=== PATIENT | female | born 1965 | race Caucasian/White ===

== ENCOUNTER 2019-09-01 19:37 | Emergency (ER) | payer OTHER ==
[2019-09-01] MEDS ORDERED: Zofran 4 MG/2 ML VIAL IV ONE (20:03)
[2019-09-01] MEDS ORDERED: SUBLIMAZE 100 MCG/2 ML IV ONE (20:03)
[2019-09-01] MEDS ORDERED: Sodium Chloride 0.9% 1000 ML 1,000 ML IV STA (20:03)
--- NOTE | 2019-09-01 20:03 | ERPHSYRPT ---
- History of Present Illness Time Seen by Provider: 09/01/19 19:52 Source: patient Exam Limitations: no limitations Physician History: Pt states yesterday midnight she started with a frontal headache, nausea, non- productive cough, scratchy throat, fever up to 101 degrees and suprapubic abdominal pain. Pt states she has had no abdominal pain today but has had diarrhea. Pt denies chest pain, shortness of air, rash. Allergies/Adverse Reactions: morphine Adverse Reaction (Mild, Verified 09/01/19 20:11) Vomiting tetracycline Adverse Reaction (Mild, Verified 09/01/19 20:11) Vomiting Travel Risk - Coronavirus Screening Are you exhibiting any of the following symptoms?: Yes Symptoms: Fever, Cough: New Onset Close contact with a COVID-19 positive Pt in past 14-21 Days: Yes - Review of Systems Constitutional: Fever Ears, Nose, & Throat: Other (scratchy throat), No Ear Pain Respiratory: Cough, No Dyspnea Cardiac: No Chest Pain Abdominal/Gastrointestinal: Abdominal Pain, Nausea, Diarrhea, No Vomiting Genitourinary Symptoms: No Dysuria, No Frequency Skin: No Rash Neurological: Headache All Other Systems: Reviewed and Negative - Nursing Vital Signs Nursing Vital Signs: Initial Vital Signs Temperature 99.2 F 09/01/19 19:56 Pulse Rate 83 09/01/19 19:56 Respiratory Rate 18 09/01/19 19:56 Blood Pressure 174/109 09/01/19 19:56 O2 Sat by Pulse Oximetry 97 09/01/19 19:56 Pain Scale Pain Intensity 0 - Physical Exam General Appearance: alert Eye Exam: PERRL/EOMI ENT Exam: TMs normal, pharynx normal Neck Exam: normal inspection Respiratory Exam: lungs clear Cardiovascular/Chest Exam: normal heart sounds Gastrointestinal/Abdominal Exam: soft, normal bowel sounds Extremity Exam: normal range of motion, no pedal edema Neurologic Exam: alert, cooperative, sensation nml, No motor deficits Skin Exam: warm, decubitus SpO2 Interpretation: normal SpO2: 97 O2 Delivery: Room Air - Course Nursing assessment & vital signs reviewed: Yes - Radiology Exams Chest X-ray Interpretation: Teleradiologist Report (old granulomatous disease.) - CT Exams Head CT Interpretation: Tele-radiologist Report (No acute intracranial abnormality.) Ordered Tests: Active Orders 24 hr Category Date Time Status IV Insertion STAT Care 09/01/19 20:03 Active CHEST 2 VIEWS (PA AND LAT) Stat Exams 09/01/19 20:04 Taken HEAD WITHOUT CONTRAST [CT] Stat Exams 09/01/19 20:06 Taken AMYLASE Stat Lab 09/01/19 20:00 Completed BLOOD CULTURE Stat Lab 09/01/19 20:41 Received CBC W DIFF Stat Lab 09/01/19 20:00 Completed CMP Stat Lab 09/01/19 20:00 Completed CULTURE,URINE Stat Lab 09/01/19 22:01 Received Erythrocyte Sedimentation Rate Stat Lab 09/01/19 20:00 Completed LIPASE Stat Lab 09/01/19 20:00 Completed [place] Screen Stat Lab 09/01/19 20:00 Completed UA W/RFX UR CULTURE Stat Lab 09/01/19 22:01 Completed Medication Summary Discontinued Medications Generic Name Dose Route Start Last Admin Trade Name Freq PRN Reason Stop Dose Admin Fentanyl Citrate 50 mcg 09/01/19 20:03 09/01/19 20:18 Sublimaze 100 Mcg/2 Ml IV 09/01/19 20:04 50 mcg STAT ONE Administration Fentanyl Citrate Confirm 09/01/19 20:12 Sublimaze 100 Mcg/2 Ml Administered 09/01/19 20:13 Dose 100 mcg .ROUTE .STK-MED ONE Sodium Chloride 1,000 mls @ 999 mls/hr 09/01/19 20:03 09/01/19 21:51 Sodium Chloride 0.9% 1000 Ml IV 09/01/19 21:03 Infused .Q1H1M STA Infusion Sodium Chloride Confirm 09/01/19 20:12 Sodium Chloride 0.9% 1000 Ml Administered 09/01/19 20:13 Dose 1,000 mls @ ud .ROUTE .STK-MED ONE Ketorolac Tromethamine 30 mg 09/01/19 21:27 09/01/19 21:33 Toradol 30 Mg Injection IV 09/01/19 21:28 30 mg STAT ONE Administration Ketorolac Tromethamine Confirm 09/01/19 21:31 Toradol 30 Mg Injection Administered 09/01/19 21:32 Dose 30 mg .ROUTE .STK-MED ONE Ondansetron HCl 4 mg 09/01/19 20:03 09/01/19 20:17 Zofran 4 Mg/2 Ml Vial IV 09/01/19 20:04 4 mg STAT ONE Administration Ondansetron HCl Confirm 09/01/19 20:12 Zofran 4 Mg/2 Ml Vial Administered 09/01/19 20:13 Dose 4 mg .ROUTE .STK-MED ONE Promethazine HCl 25 mg 09/01/19 21:28 09/01/19 21:32 Phenergan 25 Mg Inj IM 09/01/19 21:29 25 mg STAT ONE Administration Promethazine HCl Confirm 09/01/19 21:31 Phenergan 25 Mg Inj Administered 09/01/19 21:32 Dose 25 mg .ROUTE .STK-MED ONE Lab/Rad Data: Laboratory Result Diagrams 09/01/19 20:00 09/01/19 20:00 Laboratory Results 09/01/19 09/01/19 09/01/19 Range/Units 22:01 20:41 20:19 WBC (4.0-10.5) K/mm3 RBC (4.1-5.4) M/mm3 Hgb (12.0-16.0) gm/dl Hct (35-47) % MCV (78-100) fl MCH (26-32) pg MCHC (32-36) g/dl RDW (11.5-14.0) % Plt Count (150-450) K/mm3 MPV (7.5-11.0) fl Gran % (36.0-66.0) % Eos # (Auto) (0-0.5) Absolute Lymphs (auto) (1.0-4.6) Absolute Monos (auto) (0.0-1.3) Lymphocytes % (24.0-44.0) % Monocytes % (0.0-12.0) % Eosinophils % (0.00-5.0) % Basophils % (0.0-0.4) % Absolute Granulocytes (1.4-6.9) Basophils # (0-0.4) ESR (0-20) mm/hr Sodium (137-145) mmol/L Potassium (3.5-5.1) mmol/L Chloride (98-107) mmol/L Carbon Dioxide (22-30) mmol/L Anion Gap (5-15) MEQ/L BUN (7-17) mg/dL Creatinine (0.52-1.04) mg/dL Estimated GFR ML/MIN Glucose (74-106) mg/dL Calcium (8.4-10.2) mg/dL Total Bilirubin (0.2-1.3) mg/dL AST (14-36) U/L ALT (0-35) U/L Alkaline Phosphatase (38-126) U/L Serum Total Protein (6.3-8.2) g/dL Albumin (3.5-5.0) g/dL Amylase (30-110) U/L Lipase (23-300) U/L Urine Color YELLOW (YELLOW) Urine Appearance SLIGHTLY CLOUDY (CLEAR) Urine pH 5.0 (5-6) Ur Specific [place] 1.018 (1.005-1.025) Urine Protein NEGATIVE (Negative) Urine Ketones NEGATIVE (NEGATIVE) Urine Blood SMALL (0-5) Teo/ul Urine Nitrite NEGATIVE (NEGATIVE) Urine Bilirubin NEGATIVE (NEGATIVE) Urine Urobilinogen NEGATIVE (0-1) mg/dL Ur Leukocyte Esterase SMALL (NEGATIVE) Urine WBC (Auto) 3-5 (0-5) /HPF Urine RBC (Auto) 3-5 (0-2) /HPF U Epithel Cells (Auto) RARE (FEW) /HPF Urine Bacteria (Auto) NONE SEEN (NEGATIVE) /HPF Urine Mucus (Auto) SLIGHT (NEGATIVE) /HPF Urine Culture Reflexed YES (NO) Urine Glucose NEGATIVE (NEGATIVE) mg/dL Monoscreen (Negative) Influenza Type A Ag NEGATIVE (NEGATIVE) Influenza Type B Ag NEGATIVE (NEGATIVE) RSV (PCR) NEGATIVE (Negative) SARS-CoV-2 (PCR) NEGATIVE (NEGATIVE) Group A Strep Antibody NOT DETECTED (NEGATIVE) 09/01/19 09/01/19 09/01/19 Range/Units 20:00 20:00 20:00 WBC (4.0-10.5) K/mm3 RBC (4.1-5.4) M/mm3 Hgb (12.0-16.0) gm/dl Hct (35-47) % MCV (78-100) fl MCH (26-32) pg MCHC (32-36) g/dl RDW (11.5-14.0) % Plt Count (150-450) K/mm3 MPV (7.5-11.0) fl Gran % (36.0-66.0) % Eos # (Auto) (0-0.5) Absolute Lymphs (auto) (1.0-4.6) Absolute Monos (auto) (0.0-1.3) Lymphocytes % (24.0-44.0) % Monocytes % (0.0-12.0) % Eosinophils % (0.00-5.0) % Basophils % (0.0-0.4) % Absolute Granulocytes (1.4-6.9) Basophils # (0-0.4) ESR 31 H (0-20) mm/hr Sodium 142 (137-145) mmol/L Potassium 3.6 (3.5-5.1) mmol/L Chloride 105 (98-107) mmol/L Carbon Dioxide 30 (22-30) mmol/L Anion Gap 10.5 (5-15) MEQ/L BUN 10 (7-17) mg/dL Creatinine 0.72 (0.52-1.04) mg/dL Estimated GFR > 60.0 ML/MIN Glucose 105 (74-106) mg/dL Calcium 9.9 (8.4-10.2) mg/dL Total Bilirubin 0.50 (0.2-1.3) mg/dL AST 27 (14-36) U/L ALT 19 (0-35) U/L Alkaline Phosphatase 96 (38-126) U/L Serum Total Protein 8.3 H (6.3-8.2) g/dL Albumin 4.4 (3.5-5.0) g/dL Amylase 74 (30-110) U/L Lipase 102 (23-300) U/L Urine Color (YELLOW) Urine Appearance (CLEAR) Urine pH (5-6) Ur Specific [place] (1.005-1.025) Urine Protein (Negative) Urine Ketones (NEGATIVE) Urine Blood (0-5) Teo/ul Urine Nitrite (NEGATIVE) Urine Bilirubin (NEGATIVE) Urine Urobilinogen (0-1) mg/dL Ur Leukocyte Esterase (NEGATIVE) Urine WBC (Auto) (0-5) /HPF Urine RBC (Auto) (0-2) /HPF U Epithel Cells (Auto) (FEW) /HPF Urine Bacteria (Auto) (NEGATIVE) /HPF Urine Mucus (Auto) (NEGATIVE) /HPF Urine Culture Reflexed (NO) Urine Glucose (NEGATIVE) mg/dL Monoscreen NEGATIVE (Negative) Influenza Type A Ag (NEGATIVE) Influenza Type B Ag (NEGATIVE) RSV (PCR) (Negative) SARS-CoV-2 (PCR) (NEGATIVE) Group A Strep Antibody (NEGATIVE) 09/01/19 Range/Units 20:00 WBC 6.3 (4.0-10.5) K/mm3 RBC 4.54 (4.1-5.4) M/mm3 Hgb 13.6 (12.0-16.0) gm/dl Hct 42.4 (35-47) % MCV 93.4 (78-100) fl MCH 30.0 (26-32) pg MCHC 32.1 (32-36) g/dl RDW 13.0 (11.5-14.0) % Plt Count 358 (150-450) K/mm3 MPV 9.8 (7.5-11.0) fl Gran % 55.2 (36.0-66.0) % Eos # (Auto) 0.41 (0-0.5) Absolute Lymphs (auto) 1.80 (1.0-4.6) Absolute Monos (auto) 0.56 (0.0-1.3) Lymphocytes % 28.4 (24.0-44.0) % Monocytes % 8.8 (0.0-12.0) % Eosinophils % 6.5 H (0.00-5.0) % Basophils % 1.1 (0.0-0.4) % Absolute Granulocytes 3.50 (1.4-6.9) Basophils # 0.07 (0-0.4) ESR (0-20) mm/hr Sodium (137-145) mmol/L Potassium (3.5-5.1) mmol/L Chloride (98-107) mmol/L Carbon Dioxide (22-30) mmol/L Anion Gap (5-15) MEQ/L BUN (7-17) mg/dL Creatinine (0.52-1.04) mg/dL Estimated GFR ML/MIN Glucose (74-106) mg/dL Calcium (8.4-10.2) mg/dL Total Bilirubin (0.2-1.3) mg/dL AST (14-36) U/L ALT (0-35) U/L Alkaline Phosphatase (38-126) U/L Serum Total Protein (6.3-8.2) g/dL Albumin (3.5-5.0) g/dL Amylase (30-110) U/L Lipase (23-300) U/L Urine Color (YELLOW) Urine Appearance (CLEAR) Urine pH (5-6) Ur Specific [place] (1.005-1.025) Urine Protein (Negative) Urine Ketones (NEGATIVE) Urine Blood (0-5) Teo/ul Urine Nitrite (NEGATIVE) Urine Bilirubin (NEGATIVE) Urine Urobilinogen (0-1) mg/dL Ur Leukocyte Esterase (NEGATIVE) Urine WBC (Auto) (0-5) /HPF Urine RBC (Auto) (0-2) /HPF U Epithel Cells (Auto) (FEW) /HPF Urine Bacteria (Auto) (NEGATIVE) /HPF Urine Mucus (Auto) (NEGATIVE) /HPF Urine Culture Reflexed (NO) Urine Glucose (NEGATIVE) mg/dL Monoscreen (Negative) Influenza Type A Ag (NEGATIVE) Influenza Type B Ag (NEGATIVE) RSV (PCR) (Negative) SARS-CoV-2 (PCR) (NEGATIVE) Group A Strep Antibody (NEGATIVE) - Progress Progress: unchanged Counseled pt/family regarding: lab results, rad results - Departure Departure Disposition: Home Clinical Impression: Headache, Fever, Nausea, Diarrhea Condition: Stable Critical Care Time: No Referrals: DOCTOR,NO FAMILY [Primary Care Provider] - Instructions: Fever, Adult (DC) Additional Instructions: Follow up with private doctor tomorrow. Drink plenty of fluids. Forms: Work/School Release Form Prescriptions: Ondansetron ODT 4 MG [Zofran Odt 4 mg] 4 mg PO Q6H PRN PRN #20 tab.rapdis PRN Reason: Nausea/Vomiting Naproxen [Naprosyn] 500 mg PO [id number] PRN #20 tablet PRN Reason: Pain
[2019-09-01] MEDS ORDERED: Sodium Chloride 0.9% 1000 ML 1,000 ML ONE (20:12)
[2019-09-01] MEDS ORDERED: SUBLIMAZE 100 MCG/2 ML ONE (20:12)
[2019-09-01] MEDS ORDERED: Zofran 4 MG/2 ML VIAL ONE (20:12)
[2019-09-01 20:15] LABS: BASOPHIL % 1.1 % (0.0-0.4); Basophil (Absolute #) 0.07 (0-0.4); Eosinophil % 6.5 % (0.00-5.0); Eosinophil (Absolute #) 0.41 (0-0.5); Hematocrit 42.4 % (35-47); Hemoglobin 13.6 gm/dl (12.0-16.0); Lymphocytes % 28.4 % (24.0-44.0); Mean Cell Volume 93.4 fl (78-100); Mean Corpuscular Hgb Concent. 32.1 g/dl (32-36); Mean Platelet Volume 9.8 fl (7.5-11.0); Monocyte (Absolute #) 0.56 (0.0-1.3); Monocytes % 8.8 % (0.0-12.0); Neutrophil % 55.2 % (36.0-66.0); Platelet Count 358 K/mm3 (150-450); Red Blood Count 4.54 M/mm3 (4.1-5.4); White Blood Count 6.3 K/mm3 (4.0-10.5)
[2019-09-01 20:22] LABS: ALBUMIN 4.4 g/dL (3.5-5.0); ALKALINE PHOSPHATASE 96 U/L (38-126); AMYLASE 74 U/L (30-110); ANION GAP 10.5 MEQ/L (5-15); BLOOD UREA NITROGEN 10 mg/dL (7-17); CHLORIDE 105 mmol/L (98-107); Calcium 9.9 mg/dL (8.4-10.2); Carbon Dioxide 30 mmol/L (22-30); Creatinine 1 0.72 mg/dL (0.52-1.04); Glucose 105 mg/dL (74-106); LIPASE 102 U/L (23-300); Potassium 3.6 mmol/L (3.5-5.1); SGOT/AST 27 U/L (14-36); SGPT/ALT 19 U/L (0-35); SODIUM 142 mmol/L (137-145); Total Protein 8.3 g/dL (6.3-8.2)
[2019-09-01 21:16] LABS: INFLUENZA A NEGATIVE (NEGATIVE); INFLUENZA B NEGATIVE (NEGATIVE); RESPIRATORY SYNCTIAL VIRUS NEGATIVE (Negative)
[2019-09-01] MEDS ORDERED: TORAdol 30 mg Injection IV ONE (21:27)
[2019-09-01] MEDS ORDERED: Phenergan 25 MG INJ IM ONE (21:28)
[2019-09-01] MEDS ORDERED: Phenergan 25 MG INJ ONE (21:31)
[2019-09-01] MEDS ORDERED: TORAdol 30 mg Injection ONE (21:31)
[2019-09-01 22:12] LABS: Appearance SLIGHTLY CLOUDY (CLEAR); Bilirubin NEGATIVE (NEGATIVE); Blood SMALL Ery/ul (0-5); Epithelial Cells RARE /HPF (FEW); Glucose NEGATIVE (NEGATIVE); Ketones NEGATIVE (NEGATIVE); Leukocyte Esterase SMALL (NEGATIVE); Mucus SLIGHT /HPF (NEGATIVE); Nitrite NEGATIVE (NEGATIVE); Protein,Urine Dip NEGATIVE (Negative); Specific Gravity 1.018 (1.005-1.025); Urobilinogen NEGATIVE mg/dL (0-1)
[2019-09-01 22:13] LABS: Bacteria NONE SEEN /HPF (NEGATIVE)
[2019-09-01 23:37] VITALS: BP 144/90; PULSE 68; O2SAT 94
--- NOTE | 2019-09-02 07:42 | XRAY ---
Indication: Headache. Multiple contiguous axial images obtained through the head without contrast. Comparison: None Normal appearing brain parenchyma, ventricles, and bony calvarium. Visualized paranasal sinuses and mastoid air cells are clear. Impression: Normal CT head without contrast exam. Comment: Preliminary interpretation was made by [facility]. No critical discrepancy.
--- NOTE | 2019-09-02 07:42 | XRAY ---
Indication: Fever and cough. Comparison: None PA/lateral chest demonstrates normal heart and lungs with incidental tiny calcified granulomas. Bony thorax intact with minimal dextroscoliosis. Comment: Preliminary interpretation was made by [facility]. No discrepancy.
== END 2019-09-01 23:37 | disposition home or self-care (01) ==
LOC: ED 19:37
DX: R51 Headache (principal); R50.9 Fever, unspecified; R19.7 Diarrhea, unspecified; R11.0 Nausea
CPT/HCPCS: 36000; 36415; 70450; 71046; 80053; 81001; 82150; 83690; 85025; 85652; 86308; 87040; 87086; 87631; 87651; 96360; 96372; 96374; 96375; 99284; U0003; 87077; 87186; J1885; J2405; J2550; J3010

== ENCOUNTER 2021-05-26 08:37 | Day surgery (SDC) | payer BC ==
[2021-05-26] MEDS ORDERED: Lactated Ringers 1,000 ML IV ONE (08:47)
[2021-05-26] MEDS ORDERED: Lactated Ringers 1,000 ML IV SCH (09:00)
[2021-05-26] MEDS ORDERED: CEFAZOLIN 2 GM-D5W BAG** 2 GM/50 ML ML IV SCH (09:00)
[2021-05-26] MEDS ORDERED: CEFAZOLIN 2 GM-D5W BAG** 2 GM/50 ML ML IV ONE (09:42)
[2021-05-26 09:46] LABS: Absolute Neutrophil Ct (ANC) 3.52 (1.4-6.9); Basophil (Absolute #) 0.07 (0-0.4); Eosinophil % 6.7 % (0.00-5.0); Hematocrit 40.6 % (35-47); Hemoglobin 13.5 gm/dl (12.0-16.0); Lymphocyte (Absolute #) 1.46 (1.0-4.6); Lymphocytes % 24.6 % (24.0-44.0); Mean Cell Volume 92.3 fl (78-100); Mean Corpuscular Hemoglobin 30.7 pg (26-32); Mean Corpuscular Hgb Concent. 33.3 g/dl (32-36); Mean Platelet Volume 9.8 fl (7.5-11.0); Monocyte (Absolute #) 0.49 (0.0-1.3); Monocytes % 8.2 % (0.0-12.0); Neutrophil % 59.3 % (36.0-66.0); Platelet Count 261 K/mm3 (150-450); Red Cell Distribution Width 12.7 % (11.5-14.0); White Blood Count 5.9 K/mm3 (4.0-10.5)
[2021-05-26 10:05] LABS: ALBUMIN 4.3 g/dL (3.5-5.0); ALKALINE PHOSPHATASE 92 U/L (38-126); ANION GAP 12.2 MEQ/L (5-15); BLOOD UREA NITROGEN 11 mg/dL (7-17); CHLORIDE 104 mmol/L (98-107); Calcium 9.2 mg/dL (8.4-10.2); Carbon Dioxide 28 mmol/L (22-30); Creatinine 1 0.56 mg/dL (0.52-1.04); EST GLOMERULAR FILTRATION RATE > 60.0 ML/MIN; Glucose 92 mg/dL (74-106); Potassium 3.9 mmol/L (3.5-5.1); SGOT/AST 30 U/L (14-36); SGPT/ALT 20 U/L (0-35); SODIUM 141 mmol/L (137-145); Total Protein 7.5 g/dL (6.3-8.2)
[2021-05-26] MEDS ORDERED: Decadron 4 MG INJ ONE (11:13)
[2021-05-26] MEDS ORDERED: Zofran 4 MG/2 ML VIAL ONE ×2 (11:13→12:37)
[2021-05-26] MEDS ORDERED: Xylocaine-Mpf 2% 5 Ml Vial ONE (11:13)
[2021-05-26] MEDS ORDERED: SUBLIMAZE 100 MCG/2 ML ONE (11:16)
[2021-05-26] MEDS ORDERED: Zemuron 100 MG/10 ML ONE (11:39)
[2021-05-26] MEDS ORDERED: BRIDION 200MG/2ML IV ONE (11:39)
[2021-05-26] MEDS ORDERED: TORAdol 30 mg Injection ONE ×2 (11:39→12:41)
[2021-05-26] MEDS ORDERED: XYLOCAINE 1%/Epi 1:100000 MDV 20 ML ONE (11:50)
[2021-05-26] MEDS ORDERED: Ephedrine Sulfate 50 MG/ML ONE (12:02)
[2021-05-26 14:28] VITALS: O2SAT 95
[2021-05-26 14:29] LABS: Appearance CLEAR (CLEAR); Bilirubin NEGATIVE (NEGATIVE); Dipstick done @ ? MAIN LAB; Glucose NEGATIVE (NEGATIVE); Ketones NEGATIVE (NEGATIVE); Nitrite NEGATIVE (NEGATIVE); Protein,Urine Dip NEGATIVE (Negative); RBC NEGATIVE Ery/ul (0-5); Specific Gravity 1.015 (1.005-1.025); Urobilinogen 0.2 mg/dL (0-1)
[2021-05-26 14:33] VITALS: BP 118/90; PULSE 80
--- NOTE | 2021-05-27 10:44 | OP ---
SURGERY DATE/TIME: 05/26/2021 1118 PREOPERATIVE DIAGNOSIS: Rectocele. POSTOPERATIVE DIAGNOSIS: Rectocele. PROCEDURE: Posterior colporrhaphy. SURGEON: Yobani Chandler D.O. TRAVEL REGISTERED NURSE ICU: Ashely Bass, surgical techs. ANESTHESIA: General. ESTIMATED BLOOD LOSS: Minimal. COMPLICATIONS: None. INDICATIONS: The risks, benefits, indications of the surgery were discussed with the patient prior to procedure. The patient understood the risk of infection, bleeding, bowel injury, bladder injury, ureteral injury, possible fistula, pelvic infection and thromboembolic disorder associated with the surgery however desires to have this surgery as a possible means to alleviate her current medical condition. DESCRIPTION OF PROCEDURE AND FINDINGS: At this point, the patient is taken to the operating room, given general sedation, placed in dorsal lithotomy position where she was prepped and draped in the usual sterile fashion. Approximately 10 cc of lidocaine with epinephrine was infiltrated under posterior vaginal mucosa in the midline and into the peritoneal body. A transverse incision was cut into the perineum. The posterior vaginal wall was opened vertically in midline up to apex of the rectocele. The cut edges were held and splayed laterally with a series of Allis clamps. The open vaginal mucosa was then dissected laterally with a combination of sharp and blunt dissection exposing the perirectal fascia. The perirectal fascia was then re-approximated with interrupted 2-0 Vicryl sutures to draw the lateral folds together and tuck the rectocele back. Deep interrupted sutures of 0 Vicryl sutures were used to re-approximate the fibers of levator ani muscles. The excess vaginal mucosa was trimmed and the posterior vaginal wall was closed with running 1-0 Vicryl suture at perineum. The superficial peritoneal muscles were closed with running locked 0 Vicryl and the peroneal skin was closed in interrupted fashion using 2-0 chromic suture. She tolerated the procedure well. Sponge, lap and instrument counts were correct x2.
== END 2021-05-26 13:45 | disposition home or self-care (01) ==
LOC: SDC 08:37
PROVIDERS: ATTEND Obstetrics & Gynecology
DX: N81.6 Rectocele (principal)
CPT/HCPCS: 36415; 80053; 81001; 84703; 85025; 87086; J0690; J1100; J1885; J2405; J3010

== ENCOUNTER 2024-07-01 01:14 | Emergency (ER) | payer OTHER ==
[2024-07-01 01:31] VITALS: TEMP 98.6; O2SAT 96
--- NOTE | 2024-07-01 01:36 | ERPHSYRPT ---
- History of Present Illness Time Seen by Provider: 07/01/24 01:25 Source: patient Exam Limitations: no limitations Patient Subjective Stated Complaint: patient has had cough for 2 weeks. jsut exhausted cannot quit coughing Triage Nursing Assessment: pt alert and orientedx3, able to ambulate by self, has persistant cough, left lobe has some crackles, pulses equal bilateral radius, peristant dry cough. no edema, skin warm dry and intact. Physician History: 59yo f pmhx htn presents via private vehicle for [place]. Pt reports she started having a cough and sinus sx roughly 10d [employer], states for the past 3 days she has been very fatigued and having some intermittent lower abdominal discomfort. Pt reports continued non-productive cough, denies any fevers, does endorse some exertional SOB. Pt denies any n/v/d, cp, vision changes, MILLS. Timing/Duration: day(s) (10) Cough Quality/Degree: moderate, dry cough Associated Symptoms: cough, nasal congestion, No fever, No chills, No chest pain/soreness, No dizziness, No headache, No shortness of breath, No wheezing Allergies/Adverse Reactions: latex Allergy (Verified 07/01/24 01:32) fentanyl Adverse Reaction (Mild, Verified 07/01/24 01:32) pt states reaction is sedation morphine Adverse Reaction (Mild, Verified 07/01/24 01:32) Vomiting tetracycline Adverse Reaction (Mild, Verified 07/01/24 01:32) Vomiting Home Medications: Losartan Potassium 50 mg [Cozaar 50 MG] 50 mg DAILY 06/05/24 [History] Hx Tetanus, Diphtheria Vaccination/Date Given: Yes Hx Influenza Vaccination/Date Given: Yes Hx Pneumococcal Vaccination/Date Given: Yes Travel Risk - International Travel Have you traveled outside of the country in past 3 weeks: No - Emerging Infectious Disease Are you exhibiting symptoms associated with any current EIDs: No - Review of Systems Constitutional: Fatigue, Malaise, No Fever, No Chills Respiratory: Cough, Dyspnea on Exertion (ADORNO), No Cyanosis, No Dyspnea, No Stridor, No Wheezing Cardiac: No Chest Pain, No Edema, No Palpitations Abdominal/Gastrointestinal: Abdominal Pain, No Nausea, No Vomiting, No Diarrhea Genitourinary Symptoms: No Symptoms - Past Medical History Pertinent Past Medical History: Yes Neurological History: No Pertinent History ENT History: No Pertinent History Cardiac History: Hypertension Respiratory History: No Pertinent History Endocrine Medical History: No Pertinent History Musculoskeletal History: No Pertinent History GI Medical History: No Pertinent History History: No Pertinent History Psycho-Social History: No Pertinent History Female Reproductive Disorders: Other Other Medical History: rectocele - Past Surgical History Past Surgical History: Yes Neuro Surgical History: No Pertinent History Cardiac: No Pertinent History Respiratory: No Pertinent History Gastrointestinal: No Pertinent History Genitourinary: No Pertinent History Musculoskeletal: No Pertinent History Female Surgical History: Tubal Ligation - Social History Smoking Status: Former smoker How long have you smoked: 20 years Exposure to second hand smoke: No Drug Use: none - Social Determinants of Health Will the patient participate in the screening: Yes Do you worry about a steady place to live?: No Do you have any problems with any of the following?: No known problems In the past 12 months,have you had to go without utilities?: No Transportation Issues: No Has anyone in your support network made you feel unsafe?: No Have you or anyone in your house had to go w/o enough food: No - Nursing Vital Signs Nursing Vital Signs: Initial Vital Signs Temperature 98.6 F 07/01/24 01:15 Pulse Rate 117 H 07/01/24 01:15 Respiratory Rate 22 07/01/24 01:15 Blood Pressure 153/98 07/01/24 01:15 O2 Sat by Pulse Oximetry 96 07/01/24 01:15 Pain Scale Pain Intensity 0 - Physical Exam General Appearance: no apparent distress, alert Respiratory Exam: normal breath sounds, lungs clear, airway intact, No chest tenderness, No respiratory distress, No crackles/rales, No rhonchi, No wheezing, No stridor Cardiovascular Exam: regular rate/rhythm, normal heart sounds, normal peripheral pulses, capillary refill <2 sec Gastrointestinal/Abdomen Exam: soft, normal bowel sounds, No tenderness, No distention Neurologic Exam: alert, oriented x 3, cooperative SpO2 Interpretation: normal SpO2: 96 O2 Delivery: Room Air - Course EKG Interpreted by Me: RATE (102), Sinus Tach, Non-specific ST Changes, Other (not suggestive of acute ischemia) Ordered Tests: Active Orders 24 hr Category Date Time Status EKG-ER Only STAT Care 07/01/24 01:34 Active CHEST 2 VIEWS (PA AND LAT) Stat Exams 07/01/24 01:35 Taken CHEST WITH CONTRAST [CT] Stat Exams 07/01/24 02:31 Completed CBC W DIFF Stat Lab 07/01/24 01:45 Completed CMP Stat Lab 07/01/24 01:45 Completed CULTURE,URINE Stat Lab 07/01/24 01:32 Received D-DIMER QUANTITATIVE Stat Lab 07/01/24 01:49 Completed PROCALCITONIN Stat Lab 07/01/24 01:45 Completed UA W/RFX UR CULTURE Stat Lab 07/01/24 01:32 Completed Medication Summary Discontinued Medications Generic Name Dose Route Start Last Admin Trade Name Freq PRN Reason Stop Dose Admin Sodium Chloride 500 mls @ 500 mls/hr 07/01/24 01:35 07/01/24 02:52 Sodium Chloride 0.9% 500 Ml IV 07/01/24 02:34 500 mls/hr .Q1H ONE Infusion Sodium Chloride Confirm 07/01/24 01:49 Sodium Chloride 0.9% 500 Ml Administered 07/01/24 01:50 Dose 500 mls @ ud IV .STK-MED ONE Ceftriaxone Sodium 1 gm in 100 mls @ 200 mls/hr 07/01/24 02:00 07/01/24 02:35 Rocephin 1 Gm / 100 Ml Nacl IV 07/01/24 02:29 200 mls/hr STAT ONE 200 mls/hr Infusion Ceftriaxone Sodium Confirm 07/01/24 02:04 Rocephin 1 Gm / 100 Ml Nacl Administered 07/01/24 02:05 Dose 1 gm in 100 mls @ ud IV .STK-MED ONE Lab/Rad Data: Laboratory Result Diagrams 07/01/24 01:45 07/01/24 01:45 Laboratory Results 07/01/24 07/01/24 07/01/24 Range/Units 01:49 01:45 01:45 WBC (3.98-10.04) x10^3/uL RBC (3.93-5.22) x10^6/uL Hgb (11.2-15.7) g/dL Hct (34.1-44.9) % MCV (79.4-94.8) fL MCH (25.6-32.2) pg MCHC (32.2-35.5) g/dL RDW (11.7-14.4) % Plt Count (182-369) x10^3/uL MPV (9.4-12.3) fL Gran % (34.0-71.1) % Immature Gran % (Auto) (0.001-0.429) % Nucleat RBC Rel Count (0.00-0.2) % Eos # (Auto) (0.04-0.36) x10^3/uL Immature Gran # (Auto) (0.001-0.031) x10^3u/L Absolute Lymphs (auto) (1.18-3.74) x10^3/uL Absolute Monos (auto) (0.24-0.86) x10^3/uL Absolute Nucleated RBC (0.00-0.012) x10^3u/L Lymphocytes % (19.3-51.7) % Monocytes % (4.7-12.5) % Eosinophils % (0.7-5.8) % Basophils % (0.1-1.2) % Absolute Granulocytes (1.56-6.13) x10^3/uL Basophils # (0.01-0.08) x10^3/uL D-Dimer 0.86 H* (0.0-0.50) mg/L Sodium (135-145) mmol/L Potassium (3.5-5.1) mmol/L Chloride (98-107) mmol/L Carbon Dioxide (22-30) mmol/L Anion Gap (5-15) MEQ/L BUN (7-17) mg/dL Creatinine (0.52-1.04) mg/dL Estimated GFR ML/MIN Glucose (74-106) mg/dL Calcium (8.4-10.2) mg/dL Total Bilirubin (0.2-1.3) mg/dL AST (14-36) U/L ALT (0-35) U/L Alkaline Phosphatase (38-126) U/L Serum Total Protein (6.3-8.2) g/dL Albumin (3.5-5.0) g/dL Procalcitonin 0.189 H (0.030-0.080) ng/mL Urine Color (Yellow) Urine Appearance (Clear) Urine pH (4.6-8.0) Ur Specific Lamar (1.005-1.030) Urine Protein (Negative) Urine Glucose (UA) (Negative) mg/dL Urine Ketones (Negative) Urine Blood (Negative) Urine Nitrite (Negative) Urine Bilirubin (Negative) Urine Urobilinogen (0.2) mg/dL Ur Leukocyte Esterase (Negative) U Hyaline Cast (Auto) (0-2) /LPF Urine Microscopic RBC (0-5) /HPF Urine Microscopic WBC (0-5) /HPF Ur Epithelial Cells (None Seen) /HPF Urine Bacteria (None Seen) /HPF Urine Culture Reflexed (NO) Influenza Type A Ag NEGATIVE (NEGATIVE) Influenza Type B Ag NEGATIVE (NEGATIVE) RSV (PCR) NEGATIVE (NEGATIVE) SARS-CoV-2 (PCR) NEGATIVE (NEGATIVE) 07/01/24 07/01/24 07/01/24 Range/Units 01:45 01:45 01:32 WBC 11.4 H (3.98-10.04) x10^3/uL RBC 4.26 (3.93-5.22) x10^6/uL Hgb 12.6 (11.2-15.7) g/dL Hct 38.5 (34.1-44.9) % MCV 90.4 (79.4-94.8) fL MCH 29.6 (25.6-32.2) pg MCHC 32.7 (32.2-35.5) g/dL RDW 12.9 (11.7-14.4) % Plt Count 324 (182-369) x10^3/uL MPV 9.0 L (9.4-12.3) fL Gran % 73.4 H (34.0-71.1) % Immature Gran % (Auto) 0.3 (0.001-0.429) % Nucleat RBC Rel Count 0.0 (0.00-0.2) % Eos # (Auto) 0.21 (0.04-0.36) x10^3/uL Immature Gran # (Auto) 0.03 (0.001-0.031) x10^3u/L Absolute Lymphs (auto) 1.68 (1.18-3.74) x10^3/uL Absolute Monos (auto) 1.02 H (0.24-0.86) x10^3/uL Absolute Nucleated RBC 0.00 (0.00-0.012) x10^3u/L Lymphocytes % 14.8 L (19.3-51.7) % Monocytes % 9.0 (4.7-12.5) % Eosinophils % 1.8 (0.7-5.8) % Basophils % 0.7 (0.1-1.2) % Absolute Granulocytes 8.36 H (1.56-6.13) x10^3/uL Basophils # 0.08 (0.01-0.08) x10^3/uL D-Dimer (0.0-0.50) mg/L Sodium 139 (135-145) mmol/L Potassium 3.8 (3.5-5.1) mmol/L Chloride 101 (98-107) mmol/L Carbon Dioxide 27 (22-30) mmol/L Anion Gap 14.7 (5-15) MEQ/L BUN 10 (7-17) mg/dL Creatinine 0.68 (0.52-1.04) mg/dL Estimated GFR 100.3 ML/MIN Glucose 129 H (74-106) mg/dL Calcium 9.2 (8.4-10.2) mg/dL Total Bilirubin 0.60 (0.2-1.3) mg/dL AST 25 (14-36) U/L ALT 24 (0-35) U/L Alkaline Phosphatase 105 (38-126) U/L Serum Total Protein 7.4 (6.3-8.2) g/dL Albumin 4.4 (3.5-5.0) g/dL Procalcitonin (0.030-0.080) ng/mL Urine Color Yellow (Yellow) Urine Appearance Clear (Clear) Urine pH 6.5 (4.6-8.0) Ur Specific Lamar 1.020 (1.005-1.030) Urine Protein Negative (Negative) Urine Glucose (UA) Negative (Negative) mg/dL Urine Ketones Negative (Negative) Urine Blood Trace (Negative) Urine Nitrite Negative (Negative) Urine Bilirubin Negative (Negative) Urine Urobilinogen 1.0 A (0.2) mg/dL Ur Leukocyte Esterase Moderate A (Negative) U Hyaline Cast (Auto) NONE SEEN (0-2) /LPF Urine Microscopic RBC 3-5 (0-5) /HPF Urine Microscopic WBC 21-50 A (0-5) /HPF Ur Epithelial Cells Rare (None Seen) /HPF Urine Bacteria None Seen (None Seen) /HPF Urine Culture Reflexed YES (NO) Influenza Type A Ag (NEGATIVE) Influenza Type B Ag (NEGATIVE) RSV (PCR) (NEGATIVE) SARS-CoV-2 (PCR) (NEGATIVE) - Progress Progress: improved Air Movement: good Progress Note: 07/01/24 02:04 UA suggestive of UTI - will give dose IV rocephin 1g 07/01/24 02:22 D dimer elevated - will order CTA chest 07/01/24 04:11 CTA chest showed 1. normal CTA of chest 2. no evidence of significant vascular abnormalities 3. Bilateral centrilobular and paraseptal emphysematous changes more evident at both upper lobes 4. few bilateral calcified nodules involving both lwoer lobes (most benign), < 6mm, optional CT at 12month f/u according to fleischner society guidelines 07/01/24 04:[address] findings w/ patient plan for discharge home with PCP follow up this week - Kamron will send with 6 day course of cefdinir to be taken twice daily recommend plenty of oral hydration and rest as possible return to ED if: develop worsening shortness of breath, develop chest pain, develop blurry vision, develop blood in urine or stool Blood Culture(s) Obtained: No Antibiotics given: Yes Counseled pt/family regarding: lab results, diagnosis, need for follow-up, rad results Medical Desision Making - Diagnostic Testing Diagnostic test were ordered, analyzed, and reviewed by me: Yes Radiological Interpretation: Reviewed by me, Teleradiologist Report - Risk of complications Low Risk: Low risk of morbidity from additional dx testing or treatment - Departure Departure Disposition: Home Clinical Impression: UTI (urinary tract infection) Qualifiers: Urinary tract infection type: acute cystitis Hematuria presence: with hematuria Qualified Code(s): N30.01 - Acute cystitis with hematuria Condition: Stable Critical Care Time: No Referrals: ALEXX BOURNE NP [Primary Care Provider, [facility]] - Follow up/PCP as directed Additional Instructions: plan for discharge home with PCP follow up this week - Kamron will send with 6 day course of cefdinir to be taken twice daily recommend plenty of oral hydration and rest as possible return to ED if: develop worsening shortness of breath, develop chest pain, develop blurry vision, develop blood in urine or stool Prescriptions: Cefdinir 300 mg PO BID 6 Days #12 cap
[2024-07-01 01:46] LABS: Absolute Neutrophil Ct (ANC) 8.36 x10^3/uL (1.56-6.13); BASOPHIL % 0.7 % (0.1-1.2); Basophil (Absolute #) 0.08 x10^3/uL (0.01-0.08); Eosinophil % 1.8 % (0.7-5.8); Eosinophil (Absolute #) 0.21 x10^3/uL (0.04-0.36); Hematocrit 38.5 % (34.1-44.9); Hemoglobin 12.6 g/dL (11.2-15.7); IMMATURE GRAN # 0.03 x10^3u/L (0.001-0.031); IMMATURE GRAN % 0.3 % (0.001-0.429); Lymphocyte (Absolute #) 1.68 x10^3/uL (1.18-3.74); Lymphocytes % 14.8 % (19.3-51.7); Mean Cell Volume 90.4 fL (79.4-94.8); Mean Corpuscular Hemoglobin 29.6 pg (25.6-32.2); Mean Corpuscular Hgb Concent. 32.7 g/dL (32.2-35.5); Monocyte (Absolute #) 1.02 x10^3/uL (0.24-0.86); Neutrophil % 73.4 % (34.0-71.1); Platelet Count 324 x10^3/uL (182-369); Red Blood Count 4.26 x10^6/uL (3.93-5.22); Red Cell Distribution Width 12.9 % (11.7-14.4); White Blood Count 11.4 x10^3/uL (3.98-10.04)
[2024-07-01] MEDS ORDERED: Sodium Chloride 0.9% 500 ML 500 ML IV ONE (01:49)
[2024-07-01] MEDS: Sodium Chloride 0.9% 500 ML 500 ML IV ONE (01:52)
[2024-07-01 01:55] LABS: Appearance Clear (Clear); Bacteria None Seen /HPF (None Seen); Bilirubin Negative (Negative); Blood Trace (Negative); Epithelial Cells Rare /HPF (None Seen); Glucose, Urine Negative (Negative); Hyaline Casts NONE SEEN /LPF (0-2); Ketones Negative (Negative); Leukocyte Esterase Moderate (Negative); Nitrite Negative (Negative); Ph 6.5 (4.6-8.0); Protein,Urine Dip Negative (Negative); WBC 21-50 /HPF (0-5)
[2024-07-01 01:59] LABS: ALBUMIN 4.4 g/dL (3.5-5.0); ANION GAP 14.7 MEQ/L (5-15); BILIRUBIN,TOTAL 0.6 mg/dL (0.2-1.3); Calcium 9.2 mg/dL (8.4-10.2); Creatinine 1 0.68 mg/dL (0.52-1.04); EST GLOMERULAR FILTRATION RATE 100.3 ML/MIN; Potassium 3.8 mmol/L (3.5-5.1); Total Protein 7.4 g/dL (6.3-8.2)
[2024-07-01] MEDS ORDERED: ROCEPHIN 1 GM / 100 ML NaCl 1 GM/100 ML IVPB IV ONE (02:04)
[2024-07-01] MEDS: ROCEPHIN 1 GM / 100 ML NaCl 1 GM/100 ML IVPB IV ONE (02:08)
[2024-07-01 02:23] LABS: INFLUENZA A NEGATIVE (NEGATIVE); INFLUENZA B NEGATIVE (NEGATIVE); RESPIRATORY SYNCTIAL VIRUS NEGATIVE (NEGATIVE); SARS-CoV-2 Xpert Express NEGATIVE (NEGATIVE)
--- NOTE | 2024-07-01 04:01 | XRAY ---
CLINICAL HISTORY: PE r/o, elevated dimer, ,sob COMPARISON: None. TECHNIQUE: Contiguous 3.[address] angiographic images of the chest were acquired with the administration of intravenous contrast 80 ml Isovue. Coronal and sagittal reconstructions were obtained. One of these 3D techniques was utilized: Maximum Intensity Pixel (MIP), 3D Reconstructed Images, Volume Rendered Images, Surface Shaded Rendering. One of the following dose reduction techniques were utilized for this exam: Automated exposure control, adjustment of the mA and/or kV according to patient size, and use of iterative reconstruction. FINDINGS: Aorta: The thoracic aorta is normal in caliber. No evidence of aneurysm, dissection, or significant atherosclerotic changes. Aortic arch and descending thoracic aorta are unremarkable. Pulmonary Arteries: Pulmonary arteries are normal in size and opacification. No evidence of pulmonary embolism. No stenosis or filling defects. Superior Vena Cava (SVC) and Inferior Vena Cava (IVC): Normal opacification and caliber. No evidence of thrombus or obstruction. Coronary Arteries: Coronary arteries are well-opacified. No significant stenosis or atherosclerotic changes. Mediastinum: No mediastinal mass or lymphadenopathy. Normal appearance of the thymus. Heart: Normal size and morphology of the heart. No pericardial effusion. Lungs: Bilateral cetrilobilular and paraseptal emphysematous changes; more evident at both upper lobes. Few bilateral calcified nodules involving both lower lobes range in size from 4-5 mm The remaining Lungs are clear with no evidence of consolidation or masses. No pleural effusion or thickening. Bones: No fractures or lytic/sclerotic lesions of the visualized bony structures. Normal alignment and bone density. Soft Tissues: Normal appearance of the visualized soft tissues. No abnormal masses or fluid collections. IMPRESSION: 1. Normal CT angiography of the chest. 2. No evidence of significant vascular abnormalities. 3. Bilateral cetrilobilular and paraseptal emphysematous changes; more evident at both upper lobes. 4. Few bilateral calcified nodules involving both lower lobes ( mostly benign ), less than 6 mm, optional CT at 12-month follow-up according to Fleischner Society guidelines. Electronically Signed by: Chandler Allen MD. (07/01/2024 03:58:09 EDT)
[2024-07-01 04:19] VITALS: BP 129/82; PULSE 98; RESP 17
--- NOTE | 2024-07-01 07:21 | XRAY ---
Indication: Cough. Comparison: September 01, 2019 PA/lateral chest remains hyperinflated and clear again with incidental bilateral calcified granulomas. Heart and mediastinal structures within normal limits. Bony thorax intact again with minimal degenerative changes and minimal dextroscoliosis. No new/acute findings. Impression: Continued nonacute chest with chronic features.
== END 2024-07-01 04:33 | disposition home or self-care (01) ==
LOC: ED 01:14
DX: N30.01 Acute cystitis with hematuria (principal); R53.81 Other malaise; R05.1 Acute cough; R10.30 Lower abdominal pain, unspecified; I10 Essential (primary) hypertension; Z79.899 Other long term (current) drug therapy
CPT/HCPCS: 0241U; 36415; 71046; 71260; 80053; 81001; 84145; 85025; 85379; 87086; 93005; 96361; 96365; 99285; 99284; J0696